=== PATIENT | female | born 1985 ===

== ENCOUNTER 2017-02-02 05:57 | Emergency (ER) | payer OTHER ==
[2017-02-02 06:06] VITALS: RESP 18; O2SAT 99
--- NOTE | 2017-02-02 06:23 | C.PDOC ---
History Of Present Illness <Jim Payne DO - Last Filed: 02/02/17 06:49> <BibAntonette - Last Filed: 02/02/17 07:37> Patient is a 32 y/o female who presents to the ED with a complaint of a headache since . Boyfriend reports that patient was working and was hit in the head with a metal rack full of clothes; pain has progressively worsened since incident. Notes patient took aspirin with no relief; last dose of medication taken on Monday. Boyfriend also reports that the patient did not go to work yesterday. Denies patient having a PMD. No other physical complaints at this time. (Jim Payne DO) History Per: Patient History/Exam Limitations: no limitations Onset/Duration Of Symptoms: Days (incident occured on . ) Current Symptoms Are (Timing): Still Present Recent travel outside of the [place]: No <Marenshanda Jim - Last Filed: 02/02/17 06:49> <Antonette Mccartney - Last Filed: 02/02/17 07:37> Time Seen by Provider: 02/02/17 06:19 Chief Complaint (Nursing): Headache Past Medical History Reviewed: Historical Data, Nursing Documentation, Vital Signs - Medical History PMH: No Chronic Diseases Surgical History: Appendectomy, Cholecystectomy Family History: States: No Known Family Hx - Social History Hx Alcohol Use: No Hx Substance Use: No <Jim Payne DO - Last Filed: 02/02/17 06:49> Vital Signs: Last Vital Signs Temp 98.2 F 02/02/17 06:01 Pulse 70 02/02/17 06:01 Resp 18 02/02/17 06:01 BP 108/69 02/02/17 06:01 Pulse Ox 99 02/02/17 06:49 Review Of Systems Constitutional: Negative for: Fever, Chills Neurological: Positive for: Headache <Jim Payne DO - Last Filed: 02/02/17 06:49> Physical Exam - Physical Exam Appears: Non-toxic, In Acute Distress Skin: Normal Color, Warm, Dry Head: Atraumatic, Normacephalic, Other (no gamez signs or racoon eyes. ) Chest: Symmetrical Cardiovascular: Rhythm Regular, No Murmur Respiratory: Normal Breath Sounds, No Rales, No Rhonchi, No Wheezing <Jerodgladys Jim DALAL - Last Filed: 02/02/17 06:49> ED Course And Treatment O2 Sat by Pulse Oximetry: 99 Progress Note: Plan: Head CT ordered. Urine test administered. Reassess: Patient is to be discharged. <Jerodgladys Jim - Last Filed: 02/02/17 06:49> Progress <Kerry DALALJim - Last Filed: 02/02/17 06:49> - Data Reviewed Data Reviewed: Lab, Diagnostic imaging <Antonette Mccartney - Last Filed: 02/02/17 07:37> - Re-Evaluation Re-evaluation Note: 02/02/17 07:35 CT REPORT REVIEWED. PT NEURO INTACT CO [facility]. REQUESTING MEDS PRIOR TO DC. VSS (Antonette Mccartney) Disposition <Jim Payne DO - Last Filed: 02/02/17 06:49> Counseled Patient/Family Regarding: Studies Performed, Diagnosis, Need For Followup, Rx Given - Disposition Disposition Time: 07:36 <Antonette Mccartney - Last Filed: 02/02/17 07:37> - Disposition Referrals: [facility] [Outside] [facility] [Outside] Disposition: HOME/ ROUTINE Condition: IMPROVED Prescriptions: Metoclopramide [Reglan] 1 tab PO TID PRN #25 tab PRN Reason: Nausea/Vomiting Instructions: Post Concussion Syndrome (ED) Forms: [facility] (Moldovan), Gen Discharge Inst Indonesian, Work Excuse Print Language: MALAYSIAN - Clinical Impression Clinical Impression: Headache, Post concussion syndrome - Scribe Statement The provider has reviewed the documentation as recorded by the Scribe <Jim Payne DO - Last Filed: 02/02/17 06:49> <BibAntonette - Last Filed: 02/02/17 07:37> - Scribe Statement Laney Rivera All medical record entries made by the Scribe were at my direction and personally dictated by me. I have reviewed the chart and agree that the record accurately reflects my personal performance of the history, physical exam, medical decision making, and the department course for this patient. I have also personally directed, reviewed, and agree with the discharge instructions and disposition. (Jim Payne DO)
--- NOTE | 2017-02-02 07:11 | CT ---
EXAM: CT Head Without Intravenous Contrast EXAM DATE/TIME: 02/02/2017 6:19 AM CLINICAL HISTORY: 32 years old, female; Pain; Headache and other: Swelling and pain at the top; Additional info: R/O ich and FX TECHNIQUE: Axial computed tomography images of the head/brain without intravenous contrast. All CT scans at this facility use one or more dose reduction techniques, viz.: automated exposure control; ma/kV adjustment per patient size (including targeted exams where dose is matched to indication; i.e. head); or iterative reconstruction technique. COMPARISON: No relevant prior studies available. FINDINGS: There is no hemorrhage. No edema, midline shift or mass effect is noted. There are bilateral basal ganglia calcifications. There is normal holt white differentiation. Ventricles, cisterns and sulci are normal for age. Calvarium is unremarkable. Included paranasal sinuses and mastoids are clear. IMPRESSION: No acute cerebral hemorrhage or edema.
[2017-02-02 07:47] VITALS: BP 117/77; PULSE 60; TEMP 98
== END 2017-02-02 07:47 | disposition home or self-care (01) ==
LOC: C.ER 05:57
DX: F07.81 Postconcussional syndrome (principal); R51 Headache